=== PATIENT | male | born 1955 | race Caucasian/White ===

== ENCOUNTER → 2020-10-08 | Outpatient (CLI) | payer OTHER ==
[~2020-10-08] VITALS: Ht 175.3 cm; Wt 73.0 kg
[~2020-10-08] MED LIST: CARTRIDGE STAM1 EACH SUBQ; PRAVACHOL20 MG PO
[2020-10-08 13:08] VITALS: BP 145/72
--- NOTE | 2020-10-08 13:27 | NUR ---
[facility] Assessment: 1. History of Osteoarthritis: DENIES History of Rheumatoid Arthritis: Not Applicable 2. Height: 5 ft. 9 in. 175.3 cm. Weight: 161.0 lb. oz. 73.029 kg. Patient's BMI: 23.8 3. Vital Signs: BP: 145/72 Pulse: 68 Resp: 20 Temp: 02 Sat: 98 ECG Mon: 4. Pain Intensity: 7-9 5. Fall Risk: Dizziness: N Needs help standing or walking: N Fallen in the last 3 months: N Fall risk comments: 6. Patient on Blood Thinner: None 7. History of Hypertension: N 8. Opioid Therapy greater than 6 weeks: N Opiate Contract Signed: 9. Risk Assessment Tool Provided: 0-LOW RISK 10. Functional Assessment Tool: 11. Recreational Drug Use: Never Drug Type: Tobacco Use: Never Smoker Tobacco Type: Amount or Packs/day: How Many Years: Alcohol Use: Yes Frequency: Weekly Quant: 1-2 DRINKS
== END | disposition home or self-care (01) ==
LOC: PAIN 07:05
PROVIDERS: ATTEND Anesthesiology Pain Medicine
DX: M54.12 Radiculopathy, cervical region (principal); Z53.8 Procedure and treatment not carried out for other reasons; E11.9 Type 2 diabetes mellitus without complications; Z98.890 Other specified postprocedural states; Z79.899 Other long term (current) drug therapy; Z79.4 Long term (current) use of insulin